=== PATIENT | male | born 1950 | race Caucasian/White ===

== ENCOUNTER 2020-11-20 11:22 | Emergency (ER) | payer MEDICARE, SELFPAY ==
[2020-11-20] VITALS (13 sets, daily range): BP systolic 141–191; BP diastolic 83–111; PULSE 87–123; RESP 16–40; TEMP 36.4–36.7; O2SAT 83–98; BMI 25.0
--- NOTE | 2020-11-20 11:54 | DI.RAD.S_ITS ---
PROCEDURE: XR CHEST 1V INDICATIONS: red, swollen feet, cough, runny nose TECHNIQUE: One view of the chest was acquired. COMPARISON: None. FINDINGS: Surgical changes and devices: None. Lungs and pleura: On this semiupright portable chest examination, no large pneumothorax or large pleural effusions are seen. No focal infiltrates are seen. The lungs are hyperexpanded. Mediastinum: Mediastinal contours appear normal. Heart size is normal. Bones and chest wall: No suspicious bony lesions. Age-appropriate bony degenerative changes are seen. Overlying soft tissues appear unremarkable. IMPRESSION: No focal infiltrates are seen. Hyperexpanded lungs. If there is clinical concern for a developing pulmonary process, a short-term followup chest series (with PA and lateral views, performed in deep inspiration) is suggested for further evaluation. Dictated by: Cononr Ragsdale M.D. on 11/20/2020 at 11:39 Approved by: Connor Ragsdale M.D. on 11/20/2020 at 11:40
--- NOTE | 2020-11-20 11:57 | ED.EXTPRO ---
HPI - Extremity Problem General Chief complaint: Extremity Problem,Nontraumatic Stated complaint: feet swollen/red in morning,eyes watery Time Seen by Provider: 11/20/20 11:31 Source: patient Mode of arrival: Ambulatory Limitations: no limitations History of Present Illness HPI Narrative: This is a pleasant 70-year-old male who comes to the emergency department with complaint of some nasal congestion, some tearing watery eyes, some throat irritation particularly after he drinks water. He also states he has had a mild cough which he describes as nonproductive. He denies any chest pain or pressure. He states occasional shortness of breath but describes it as mild. He denies any orthopnea. He denies any exertional dyspnea. Patient did have some nausea today. He has not had any vomiting. He has occasional abdominal discomfort but none today. Denies any diarrhea. He has not had a bowel movement about 3 days. Patient states he has been passing flatus regularly. He denies any dysuria, he has had polyuria but describes it as normal amounts and has not increased recently. Patient also notes that he used to have a lot of swelling in his lower extremities but does not currently. He also notes he has a redness on his feet it started on the soles and is now on the sides and he has had skin changes associated. He does note that it is intermittently painful. He also notes that he does sometimes have some tingling in his feet has not had any loss of sensation. He has also had some discomfort with the tooth in the right back occasionally. Patient states that he has not seen a physician about 5 years, he used to be a known diabetic on metformin but quit 5 years prior after moving to a new location. He also took Paxil for 20 years but quit. He initially took it after his for grief and depression but states he has been doing better and does not feel like he needs it currently. He denies any prior history of hypertension, dyslipidemia or known cardiac disease. He denies any other surgeries. He states he uses a pipe regularly to smoke tobacco, he quit drinking alcohol 30 years ago but states that he did drink to excess before that. He does not use any recreational drugs or illicit drugs but does have exposure to marijuana 2nd hand. He is currently living in a room in a house which he describes as a drug house that he rents. He states that he feels a little bit unsafe because any activities that occur. He purchased a van which he has been living in in the driveway. He states that he did qualify for living assistance approximately a year ago but he did not pursue it. He has not had a primary care physician for the last five years. Related Data Previous Rx's Medication Instructions Recorded metformin 500 mg PO BID #30 tab 11/20/20 terbinafine HCl 1 applic TOPICAL BID #30 g 11/20/20 Allergies Allergy/AdvReac Type Severity Reaction Status Date / Time No Known Drug Allergies Allergy Verified 11/20/20 13:38 Review of Systems Review of Systems ROS Unobtainable: All systems reviewed & are unremarkable except as noted in HPI and below Patient History Medical History (Updated 11/20/20 @ 15:09 by Marilyn Miguel DO) Diabetes Social History Smoking Status: Current every day smoker Smoking Status: Current every day smoker tobacco type: pipe alcohol intake frequency: 0-2 drinks per day Substance Use Type: does not use Exam Narrative Exam Narrative: GEN: well nourished, well appearing male, alert and oriented x 3, patient appears to be in mild distress. HEENT: Atraumatic, pupils are equal round reactive to light, extraocular movements are intact, nares are clear. HEART: Tachycardic but Regular rate and rhythm without murmur, clicks, rubs. Pulses are equal in upper and lower extremities LUNGS:Lungs clear to auscultation, no wheezes, rales, crackles, chest moves symmetrically, no tachypnea accessory muscle use. ABD:bowel sounds normal, soft, non-tender, nondistended, no guarding, rebound, rigidity, no masses noted, no hepatosplenomegaly :No CVA tenderness MSCL: Non-tender, no muscle atrophy, muscles strength 5/5 upper and lower extremities, full range of motion, normal gait NEURO:CN 2-12 intact, sensation normal SKIN: Patient has erythema of the soles of his feet and extending in sort of a scalloped edged onto the medial and lateral sides and in between the toes. There is some hyperkeratotic changes and skin changes consistent with a fungal type infection. There is no discharge, there is no warmth or signs of a infectious change. There are no vesicles, blisters or below. PSYCH: Patient endorses a history of anxiety and depression but denies current. No suicidal ideation or homicidal ideation. Prior history of alcohol abuse. Patient did become slightly tearful during discussion and states he did not expect us to be this nice to him. Initial Vital Signs Initial Vital Signs: Vital Signs Temperature 98.1 F 11/20/20 11:30 Pulse Rate 123 H 11/20/20 11:30 Respiratory Rate 20 11/20/20 11:30 Blood Pressure 191/111 H 11/20/20 11:30 Pulse Oximetry 98 11/20/20 11:30 Course Orders Ordered: ED Orders 11/20/20 11:40 Complete Blood Count AUTO DIFF Stat Comprehensive Metabolic Panel Stat Lipase Stat 11/20/20 11:54 Consult to [employer] - [employer]er Stat XR chest 1V Stat 11/20/20 12:17 COVID19 Stat 11/20/20 14:47 Urine Microscopic Stat Discontinued Medications Sodium Chloride (Normal Saline 0.9%) 1,000 mls @ 1,000 mls/hr IV BOLUS ONE Stop: 11/20/20 12:53 Last Infusion: 11/20/20 13:39 Dose: 0 mls/hr Documented by: Admin: 11/20/20 12:17 Dose: 1,000 mls/hr Documented by: ZARIA Vital Signs Vital signs: Vital Signs - 8 hr 11/20/20 11:30 11/20/20 11:31 11/20/20 12:00 Temperature 98.1 F Pulse Rate 111 H 109 H 100 H Respiratory Rate 20 29 H 33 H Blood Pressure 191/111 H 181/106 H 168/88 H Pulse Oximetry 97 96 98 11/20/20 12:30 11/20/20 13:00 11/20/20 13:30 Temperature Pulse Rate 98 H 92 H 94 H Respiratory Rate 16 40 H 26 H Blood Pressure 155/95 H 171/89 H 169/96 H Pulse Oximetry 95 98 95 11/20/20 14:00 11/20/20 14:01 11/20/20 14:30 Temperature Pulse Rate 97 H 98 H 87 Respiratory Rate 37 H 34 H 28 H Blood Pressure 173/102 H 156/83 H Pulse Oximetry 11/20/20 14:42 11/20/20 15:00 12/24/20 15:30 Temperature Pulse Rate 102 H 93 H 90 Respiratory Rate 23 Blood Pressure 162/92 H 141/83 H 145/84 H Pulse Oximetry 83 L 96 95 11/20/20 15:37 Temperature 97.6 F Pulse Rate Respiratory Rate Blood Pressure Pulse Oximetry MDM - Extremity (Nontraumatic) Lab Data Result diagrams: 11/20/20 11:40 11/20/20 11:40 Labs: Lab Results 11/20/20 11/20/20 11/20/20 Range/Units 11:40 11:40 12:17 WBC 8.5 (4.5-11.0) X10^3/uL RBC 6.68 H (4.5-5.9) X10^6/uL Hgb 18.4 H (13.5-17.5) g/dL Hct 55.6 H (41-53) % MCV 83.2 (80-100) fL MCH 27.5 (26-34) PG MCHC 33.1 (30-36) % RDW 13.9 (11.6-14.8) % Plt Count 312 (150-400) X10^3/uL Neut % (Auto) 75.1 H (50-75) % Lymph % (Auto) 13.0 L (25-40) % [place] % (Auto) 11.1 (3-14) % Eos % (Auto) 0.1 L (2-4) % Baso % (Auto) 0.7 (0-2) % Neut # (Auto) 6400 (2144-7229) /uL Lymph # (Auto) 1100 (3773-5420) /uL [place] # (Auto) 900 (0-900) /uL Eos # (Auto) 0 (0-450) /uL Baso # (Auto) 100 (0-100) /uL Sodium 135 L (137-145) mmol/L Potassium 3.9 (3.4-5.1) mmol/L Chloride 95 L (98-107) mmol/L Carbon Dioxide 29 (22-32) mmol/L BUN 23 H (9-20) mg/dL Creatinine 1.39 H (0.66-1.25) mg/dL Estimated GFR 50.7 L (>60) mL/min BUN/Creatinine Ratio 16.5 (6-22) Glucose 254 H (80-110) mg/dL Calcium 9.3 (8.4-10.2) mg/dL Total Bilirubin 0.5 (0.2-1.3) mg/dL AST 27 (17-59) IU/L ALT 20 (<50) IU/L Alkaline Phosphatase 127 H (38-126) U/L Total Protein 8.7 H (6.3-8.2) g/dL Albumin 4.6 (3.5-5.0) g/dL Globulin 4.1 (1.7-4.1) g/dL Albumin/Globulin Ratio 1.1 (1.0-2.8) Lipase 44 (23-300) U/L Urine RBC (0-5/HPF) Urine WBC (0-5/HPF) Ur Squamous Epith Cells (0-5/HPF) Urine Bacteria (None) Hyaline Casts (None) Urine Mucus (Negative) Ur Culture Indicated? COVID-19 PCR Negative (Negative) 11/20/20 Range/Units 14:47 WBC (4.5-11.0) X10^3/uL RBC (4.5-5.9) X10^6/uL Hgb (13.5-17.5) g/dL Hct (41-53) % MCV (80-100) fL MCH (26-34) PG MCHC (30-36) % RDW (11.6-14.8) % Plt Count (150-400) X10^3/uL Neut % (Auto) (50-75) % Lymph % (Auto) (25-40) % [place] % (Auto) (3-14) % Eos % (Auto) (2-4) % Baso % (Auto) (0-2) % Neut # (Auto) (5811-4484) /uL Lymph # (Auto) (0694-2464) /uL [place] # (Auto) (0-900) /uL Eos # (Auto) (0-450) /uL Baso # (Auto) (0-100) /uL Sodium (137-145) mmol/L Potassium (3.4-5.1) mmol/L Chloride (98-107) mmol/L Carbon Dioxide (22-32) mmol/L BUN (9-20) mg/dL Creatinine (0.66-1.25) mg/dL Estimated GFR (>60) mL/min BUN/Creatinine Ratio (6-22) Glucose (80-110) mg/dL Calcium (8.4-10.2) mg/dL Total Bilirubin (0.2-1.3) mg/dL AST (17-59) IU/L ALT (<50) IU/L Alkaline Phosphatase (38-126) U/L Total Protein (6.3-8.2) g/dL Albumin (3.5-5.0) g/dL Globulin (1.7-4.1) g/dL Albumin/Globulin Ratio (1.0-2.8) Lipase (23-300) U/L Urine RBC 0-1/hpf (0-5/HPF) Urine WBC 0-1/hpf (0-5/HPF) Ur Squamous Epith Cells 0-1 /hpf (0-5/HPF) Urine Bacteria None seen (None) Hyaline Casts 10-30/lpf (None) Urine Mucus 1+ H (Negative) Ur Culture Indicated? Cult not indicated COVID-19 PCR (Negative) Urine Dip Bedside Urine Glucose 250 mg/dl Bedside Urine Bilirubin - Negative Bedside Urine Ketone ++ 40 Urine Specific [place] 1.030 Bedside Urine Occult Blood - Negative Bedside Urine pH 5.5 Bedside Urine Protein + 30 Bedside Urine Urobilinogen - Negative Bedside Urine Nitrite - Negative Bedside Urine Leukocytes - Negative Esterase Imaging Data Chest x-ray: Radiologist's Impression: [address] [id number] ReportSigned Patient: Warren Sanderson [facility]#: [id number]: 1Acct:[id number]/Sex: 70 / MDate of Service: 11/20/20Loc: EDAccession Number: [id number] Procedure: XR chest 1V Ordering Provider: Marilyn Miguel D.O. PROCEDURE: XR CHEST 1V INDICATIONS: red, swollen feet, cough, runny nose TECHNIQUE: One view of the chest was acquired. COMPARISON: None. FINDINGS: Surgical changes and devices: None. Lungs and pleura: On this semiupright portable chest examination, no large pneumothorax or large pleural effusions are seen. No focal infiltrates are seen. The lungs are hyperexpanded. Mediastinum: Mediastinal contours appear normal. Heart size is normal. Bones and chest wall: No suspicious bony lesions. Age-appropriate bony degenerative changes are seen. Overlying soft tissues appear unremarkable. IMPRESSION: No focal infiltrates are seen. Hyperexpanded lungs. If there is clinical concern for a developing pulmonary process, a short-term followup chest series (with PA and lateral views, performed in deep inspiration) is suggested for further evaluation. Dictated by: Connor Ragsdale M.D. on 11/20/2020 at 11:39 Approved by: Connor Ragsdale M.D. on 11/20/2020 at 11:40 ECG Data Attestation EKG: I personally reviewed and interpreted this ECG as follows: Prior ECG tracings: not available for review Interpretation: Sinus tachycardia with rate of 101, OH 146 QRS of 94 and QTC of 469. No ST elevation is appreciated no depression appreciated. Patient has RSR. No priors available for comparison MDM Narrative Medical decision making narrative: This is a 70-year-old male who comes with multiple complaints. Plan for COVID testing as he does have some symptoms. Patient also has a history of diabetes he is tachycardic in the department and has skin changes on his feet consistent with fungal infection. Patient has hyperglycemia consistent with his history of diabetes. He likely has a little bit of neuropathy in his lower extremities and appears to have a fungal infection. Was given topical ointment for his fungal infection. Restarted on his oral medication, he was also seen by social work in attempt to help him set up follow-up with primary care as well as services. Patient was instructed to follow-up so that he can have his renal function rechecked. He does not show any signs of DKA today. His tachycardia improved during the department as well as his hypertension. Discharge Plan Departure Patient Disposition: Home Clinical Impression: Hyperglycemia, Tinea pedis Instructions: How to Take Care of Your Feet If You Have Diabetes, DI for Diabetes Type 2 Activity Restrictions/Additional Instructions: Follow up with a primary care physician to restart and continue your diabetic medication. I suspect the changes on your skin are a fungal infection, your diabetes makes this more likely to occur especially when it is uncontrolled. Apply medication twice daily until symptoms have completely resolved this will likely take several weeks for longer. Take metformin as prescribed, this medication can affect your renal functions you need to have your labs rechecked in the next 1-2 weeks as this medication can sometimes affect your renal or kidney function. Return to the emergency department for fevers, new chest pain, shortness of breath, lightheadedness or passing out, persistent vomiting, abdominal pain, black or bloody stools or new swelling, increasing redness, or other new skin changes in your extremities. Prescriptions: New terbinafine HCl 1 % cream 1 applic topical BID Qty: 30 RF: 0 metformin 500 mg tablet 500 mg PO BID Qty: 30 RF: 0 Referrals: Jose Lees MD [Physician] -
[2020-11-20 12:02] LABS: Add Manual Diff / Slide Review NO; Basophils Absolute Auto 100 /uL (0-100); Basophils Percent Auto 0.7 % (0-2); Eosinophils Absolute Auto 0 /uL (0-450); Eosinophils Percent Auto 0.1 % (2-4); Hematocrit 55.6 % (41-53); Hemoglobin 18.4 g/dL (13.5-17.5); Lymphocytes Absolute Auto 1100 /uL (1100-4500); Mean Corpuscular HGB Conc 33.1 % (30-36); Mean Corpuscular Hemoglobin 27.5 PG (26-34); Mean Corpuscular Volume 83.2 fL (80-100); Monocytes Absolute Auto 900 /uL (0-900); Monocytes Percent Auto 11.1 % (3-14); Neutrophils Absolute Auto 6400 /uL (1500-7000); Neutrophils Percent Auto 75.1 % (50-75); Platelet Count 312 X10^3/uL (150-400); Red Blood Cell Count 6.68 X10^6/uL (4.5-5.9); Red Cell Distribution Width 13.9 % (11.6-14.8); White Blood Cell Count 8.5 X10^3/uL (4.5-11.0)
[2020-11-20 12:08] LABS: Alanine Aminotransferase 20 IU/L (<50); Albumin 4.6 g/dL (3.5-5.0); Albumin Globulin Ratio 1.1 (1.0-2.8); Alkaline Phosphatase 127 U/L (38-126); Aspartate Aminotransferase 27 IU/L (17-59); BUN Creatinine Ratio 16.5 (6-22); Bilirubin Total 0.5 mg/dL (0.2-1.3); Blood Urea Nitrogen 23 mg/dL (9-20); Calcium 9.3 mg/dL (8.4-10.2); Carbon Dioxide 29 mmol/L (22-32); Chloride 95 mmol/L (98-107); Estimated Glomerular Filt Rate 50.7 mL/min (>60); Globulin 4.1 g/dL (1.7-4.1); Glucose 254 mg/dL (80-110); Potassium 3.9 mmol/L (3.4-5.1); Sodium 135 mmol/L (137-145); Total Protein 8.7 g/dL (6.3-8.2)
[2020-11-20] MEDS: SODIUM CHLORIDE 0.9% 1,000 ML 1000 ML IV (12:17)
[2020-11-20 12:43] LABS: COVID19 -Nasal RAPID Negative (Negative)
[2020-11-20 13:56] LABS: HEMOLYSIS < 15 (0-50); Lipase 44 U/L (23-300)
--- NOTE | 2020-11-20 14:21 | CM.SWNOTE ---
GREASE MONKEY note GREASE MONKEY consult requested for patient. Patient is a 70 yo male who presents to this ED with cough and swollen feet. Patient's insurance is Medicare. Per verbal report from Dr. Miguel, patient is currently living in his van in the driveway of house he rents a room in, and has not engaged with a PCP in multiple years. GREASE MONKEY enters room and introduces self and role. GREASE MONKEY and patient discuss at length patient's current housing situation, trauma history, and engagement with healthcare. Patient reports losing his 20 years prior and raising his children as a single father. Patient reports he was sent to halfway for 3 years and has been experiencing housing instability and homelessness since. Patient reports experiencing homelessness for 2 years prior to moving into current house. Patient reports that once he moved in, he noticed that it was a drug house and that the people in the house are using often in the home. Patient reports he then bought a van, parked it in the driveway and has been living in the van for the past few months. Patient denies SI/HI and denies substance/ETOH use. Patient reports he has been reluctant to re-engage with a PCP as he wishes the healthcare system had better explained options for treatment for his . Patient states he recognizes that due to his age and underlying health concerns, it is important for him to start meeting with a PCP again. Patient and GREASE MONKEY discuss housing. Patient had applied for housing assistance in the past, but did engage with services. GREASE MONKEY and patient discuss process for obtaining housing assistance through [employer], and patient expresses plan to start this process early following year. Patient and GREASE MONKEY discuss boundaries with roommate/landlord. Patient reports that he has been lending his roommate his SSI card and finding his account completely drained upon it's return. GREASE MONKEY and patient roleplay saying no to landlord when landlord asks for money, and patient states he is confident in setting boundary. Patient reports that he does not have a phone and currently has no money, but plans to get a phone after his next check is deposited. Patient states he feels comfortable that he knows how to accomplish this. Patient explains that he is concerned about cost of this hospital stay due to insurance. GREASE MONKEY gives patient contact info for [facility] to inquire about dual Medicare/Medicaid enrollment. GREASE MONKEY prints off tana care application and encourages patient to fill this out. Patient states that he will do this following day. GREASE MONKEY provides ED GREASE MONKEY phone in case patient needs additional support in accessing housing and healthcare resources. GREASE MONKEY updates Dr. Miguel on the above. Plan: Patient to continue course of care in ED and follow up with AKANKSHA, SHARRI once he obtains a phone. LAURA Romo
[2020-11-20 15:12] LABS: Bacteria Urine None Seen
[2020-11-20 15:25] LABS: RBC Urine 0-1/HPF (0-5/HPF); Squamous Epithelial Cell Urine 0-1 /HPF (0-5/HPF); WBC Urine 0-1/HPF (0-5/HPF)
[2020-11-20 15:26] LABS: Culture Indicated Urine Cult Not Indicated; Hyaline Casts Urine 10-30/LPF; Mucus Urine 1+ (Negative)
== END 2020-11-20 16:07 | disposition home or self-care (01) ==
PROVIDERS: Emergency Provider Emergency Medicine
DX: E11.65 Type 2 diabetes mellitus with hyperglycemia (principal); B35.3 Tinea pedis; R06.02 Shortness of breath; R20.2 Paresthesia of skin; R00.0 Tachycardia, unspecified; Z20.828 Contact with and (suspected) exposure to other viral communicable diseases
CPT/HCPCS: 36415; 71045; 80053; 81003; 81015; 83690; 85025; 87635; 93005; 96360; 99283; 99284

== ENCOUNTER 2025-02-11 20:45 | Emergency (ER) | payer MEDICARE, OTHER, SELFPAY ==
[2025-02-11] VITALS (9 sets, daily range): BP systolic 125–152; BP diastolic 74–93; PULSE 71–82; RESP 13–20; TEMP 36.1; O2SAT 94–98; BMI 24.3
--- NOTE | 2025-02-11 22:31 | DI.RAD.S_ITS ---
PROCEDURE: XR CHEST 1V INDICATIONS: chest pain TECHNIQUE: One view of the chest was acquired. COMPARISON: [facility], , XR CHEST 1V, 11/20/2020, 12:01. FINDINGS: Surgical changes and devices: None. Lungs and pleura: Lungs are clear. No pleural effusions or pneumothorax. Mediastinum: Mediastinal contours appear normal. Heart size is normal. Bones and chest wall: No suspicious bony lesions. Overlying soft tissues appear unremarkable. IMPRESSION: No acute cardiopulmonary abnormality is seen. Approved by: Daisha Toscano M.D.,Ph.D. on 02/11/2025 at 23:17
[2025-02-11 22:37] LABS: Add Manual Diff / Slide Review NO; Basophils Absolute Auto 100 /uL (0-100); Basophils Percent Auto 1.1 % (0-2); Eosinophils Absolute Auto 400 /uL (0-450); Eosinophils Percent Auto 5.5 % (2-4); Hematocrit 53.9 % (41-53); Hemoglobin 17.9 g/dL (13.5-17.5); Lymphocytes Absolute Auto 1900 /uL (1100-4500); Lymphocytes Percent Auto 28.6 % (25-40); Mean Corpuscular HGB Conc 33.2 % (30-36); Mean Corpuscular Hemoglobin 27.3 PG (26-34); Mean Corpuscular Volume 82.4 fL (80-100); Monocytes Absolute Auto 700 /uL (0-900); Monocytes Percent Auto 10.5 % (3-14); Neutrophils Absolute Auto 3600 /uL (1500-7000); Neutrophils Percent Auto 54.3 % (50-75); Platelet Count 276 X10^3/uL (150-400); Red Blood Cell Count 6.53 X10^6/uL (4.5-5.9); Red Cell Distribution Width 13.7 % (11.6-14.8); White Blood Cell Count 6.6 X10^3/uL (4.5-11.0)
[2025-02-11] MEDS: ASPIRIN 81 MG CHEW TAB 324 MG PO (22:41)
[2025-02-11 22:44] LABS: Alanine Aminotransferase 21 IU/L (<50); Albumin 4.3 g/dL (3.5-5.0); Albumin Globulin Ratio 1.3 (1.0-2.8); Alkaline Phosphatase 103 U/L (38-126); Aspartate Aminotransferase 29 IU/L (17-59); BUN Creatinine Ratio 11.5 (6-22); Bilirubin Total 0.4 mg/dL (0.2-1.3); Blood Urea Nitrogen 11 mg/dL (9-20); Calcium 9.3 mg/dL (8.4-10.2); Carbon Dioxide 29 mmol/L (22-32); Chloride 96 mmol/L (98-107); Creatine Kinase 36 U/L (55-170); Estimated Glomerular Filt Rate > 60 mL/min (>60); Globulin 3.3 g/dL (1.7-4.1); Glucose 308 mg/dL (80-110); HEMOLYSIS 25 (0-50); Lipase 81 U/L (23-300); Magnesium 2.1 mg/dL (1.6-2.3); Potassium 4.5 mmol/L (3.4-5.1); Sodium 131 mmol/L (137-145); Total Protein 7.6 g/dL (6.3-8.2)
[2025-02-11 22:45] LABS: INR 0.8 (0.9-1.3); Prothrombin Time 9.5 SECONDS (9.4-12.5)
[2025-02-11 22:48] LABS: PTT Partial Thromboplastin Tim 34 SECONDS (25.1-36.5)
[2025-02-11 22:55] LABS: NT-proBNP (BNP-Adult 18+) 60 pg/mL (<125); Troponin I < 0.012 ng/mL (0.01-0.034)
--- NOTE | 2025-02-11 23:16 | ED.GENADULT ---
HPI - General Adult General Chief complaint: Diabetic Problem Stated complaint: hurts all over, type 2 diabetic Time Seen by Provider: 02/11/25 21:40 Source: patient Mode of arrival: Ambulatory History of Present Illness HPI narrative: Patient is a 74-year-old male history of diabetes but noncompliant presenting to day with in his feet. He apparently has been reclusive in his house for number of years he does not really get out very much. He is got pain in both feet sometimes he was having some chest pain but seems to be very positional this is been ongoing for a number of weeks it has not any new or worse today. Related Data Previous Rx's Medication Instructions Recorded metformin 500 mg tablet 500 mg PO BID #30 tabs 11/20/20 terbinafine HCl 1 % topical cream 1 applic topical BID #30 grams 11/20/20 gabapentin 300 mg capsule 300 mg PO BID #30 caps 02/11/25 metformin 500 mg tablet,extended 500 mg PO BID #60 tabs 02/11/25 release 24 hr Allergies Allergy/AdvReac Type Severity Reaction Status Date / Time No Known Drug Allergies Allergy Verified 11/20/20 13:38 Patient History Medical History Diabetes Social History Smoking Status: Current every day smoker Smoking Status: Current every day smoker tobacco type: pipe alcohol intake frequency: 0-2 drinks per day Exam Initial Vital Signs Initial Vital Signs: Vital Signs Temperature 97.0 F L 02/11/25 20:53 Pulse Rate 82 02/11/25 20:53 Respiratory Rate 16 02/11/25 20:53 Blood Pressure 145/82 H 02/11/25 20:53 Pulse Oximetry 98 02/11/25 20:53 Oxygen Delivery Method Room Air 02/11/25 20:53 GENERAL: Elderly 74-year-old male and in no acute distress. HEENT: Head atraumatic,EOMI, pupils reactive, face symmetric, moist mucous membranes CARDIOVASCULAR: Regular rate and rhythm without murmurs, rubs or gallops. RESPIRATORY: Breath sounds equal bilaterally, no wheezes rales or rhonchi. ABDOMEN: Soft, nontender. Normoactive bowel sounds all 4 quadrants. No guarding or rebound. EXTREMITIES: Normal range of motion, no clubbing or edema. Neurovascularly intact Peripheral pulses intact no gross bony deformity he does have dry skin bilaterally NEUROLOGICAL: Alert and oriented x4.Normal gait and speech. Cranial nerves II through XII grossly intact. Sensation in lower extremities intact SKIN: Warm, dry, no laceration, no petechiae, no rashes or lesions. Course Orders Ordered: ED Orders 02/11/25 21:16 A1C [Hemoglobin A1C% w Est Avg Glu] Stat Complete Blood Count AUTO DIFF Stat Comprehensive Metabolic Panel Stat Lipase Stat Magnesium Stat NT-proBNP (BNP-Adult 18+) Stat PTT Partial Thromboplastin Edy Stat Prothrombin Time INR Stat Troponin & CK Cardiac Panel Stat 02/11/25 22:31 XR chest 1V Stat EKG-12 Lead Stat Discontinued Medications Acetaminophen (Acetaminophen 325 Mg Tablet) 650 mg PO NOW ONE Stop: 02/11/25 23:30 Last Admin: 02/11/25 23:47 Dose: 650 mg Documented By: GUSTAVO Aspirin (Aspirin 81 Mg Chew Tab) 324 mg PO NOW ONE Stop: 02/11/25 22:32 Last Admin: 02/11/25 22:41 Dose: 324 mg Documented By: GUSTAVO Gabapentin (Gabapentin 300 Mg Capsule) 300 mg PO NOW ONE Stop: 02/11/25 23:30 Last Admin: 02/11/25 23:46 Dose: 300 mg Documented By: GUSTAVO Metformin HCl (Metformin Xr 500 Mg Tablet) 500 mg PO NOW ONE Stop: 02/11/25 23:30 Last Admin: 02/11/25 23:46 Dose: 500 mg Documented By: GUSTAVO Vital Signs Vital signs: Vital Signs - 8 hr 02/11/25 20:53 02/11/25 21:28 02/11/25 21:28 Temperature 97.0 F L Pulse Rate 82 79 Respiratory Rate 16 Blood Pressure 145/82 H 149/87 H Pulse Oximetry 98 97 Oxygen Delivery Method Room Air 02/11/25 21:30 02/11/25 21:31 02/11/25 21:31 Temperature Pulse Rate 82 80 Respiratory Rate 16 13 Blood Pressure 152/93 H Pulse Oximetry 97 98 Oxygen Delivery Method Room Air 02/11/25 22:00 02/11/25 22:30 02/11/25 22:44 Temperature Pulse Rate 72 71 Respiratory Rate Blood Pressure 140/82 Pulse Oximetry 95 94 Oxygen Delivery Method 02/11/25 22:44 02/11/25 23:00 02/11/25 23:00 Temperature Pulse Rate 78 79 Respiratory Rate Blood Pressure 151/88 H Pulse Oximetry 97 96 Oxygen Delivery Method 02/11/25 23:30 02/11/25 23:30 02/12/25 00:04 Temperature Pulse Rate 72 79 Respiratory Rate 20 20 Blood Pressure 125/74 125/74 Pulse Oximetry 95 97 Oxygen Delivery Method Room Air Room Air Medical Decision Making Lab Data 02/11/25 21:16 02/11/25 21:16 Labs: Lab Results 02/11/25 Range/Units 21:16 WBC 6.6 (4.5-11.0) X10^3/uL RBC 6.53 H (4.5-5.9) X10^6/uL Hgb 17.9 H (13.5-17.5) g/dL Hct 53.9 H (41-53) % MCV 82.4 (80-100) fL MCH 27.3 (26-34) PG MCHC 33.2 (30-36) % RDW 13.7 (11.6-14.8) % Plt Count 276 (150-400) X10^3/uL Neut % (Auto) 54.3 (50-75) % Lymph % (Auto) 28.6 (25-40) % Cassia % (Auto) 10.5 (3-14) % Eos % (Auto) 5.5 H (2-4) % Baso % (Auto) 1.1 (0-2) % Neut # (Auto) 3600 (9309-6124) /uL Lymph # (Auto) 1900 (3950-0608) /uL Cassia # (Auto) 700 (0-900) /uL Eos # (Auto) 400 (0-450) /uL Baso # (Auto) 100 (0-100) /uL PT 9.5 (9.4-12.5) SECONDS INR 0.8 L (0.9-1.3) APTT 34 (25.1-36.5) SECONDS Sodium 131 L (137-145) mmol/L Potassium 4.5 (3.4-5.1) mmol/L Chloride 96 L (98-107) mmol/L Carbon Dioxide 29 (22-32) mmol/L BUN 11 (9-20) mg/dL Creatinine 0.96 (0.66-1.25) mg/dL Estimated GFR > 60 (>60) mL/min BUN/Creatinine Ratio 11.5 (6-22) Glucose 308 H (80-110) mg/dL Hemoglobin A1c 10.8 H (4.0-6.0) % Calcium 9.3 (8.4-10.2) mg/dL Magnesium 2.1 (1.6-2.3) mg/dL Total Bilirubin 0.4 (0.2-1.3) mg/dL AST 29 (17-59) IU/L ALT 21 (<50) IU/L Alkaline Phosphatase 103 (38-126) U/L Total Creatine Kinase 36 L (55-170) U/L Troponin I < 0.012 (0.01-0.034) ng/mL NT-Pro-B Natriuret Pep 60 (<125) pg/mL Total Protein 7.6 (6.3-8.2) g/dL Albumin 4.3 (3.5-5.0) g/dL Globulin 3.3 (1.7-4.1) g/dL Albumin/Globulin Ratio 1.3 (1.0-2.8) Lipase 81 (23-300) U/L Point of Care Testing Glucose POC 301 Urine Dip Bedside Urine Glucose 1000 mg/dl Bedside Urine Bilirubin - Negative Bedside Urine Ketone - Negative Urine Specific Sperry 1.010 Bedside Urine Occult Blood - Negative Bedside Urine pH 6.0 Bedside Urine Protein - Negative Bedside Urine Urobilinogen - Negative Bedside Urine Nitrite - Negative Bedside Urine Leukocytes - Negative Esterase Point of care testing: Point of Care Testing Glucose POC 301 Urine Dip Bedside Urine Glucose 1000 mg/dl Bedside Urine Bilirubin - Negative Bedside Urine Ketone - Negative Urine Specific S[place] 1.010 Bedside Urine Occult Blood - Negative Bedside Urine pH 6.0 Bedside Urine Protein - Negative Bedside Urine Urobilinogen - Negative Bedside Urine Nitrite - Negative Bedside Urine Leukocytes - Negative Esterase Imaging Data Chest x-ray: Radiologist's Impression: PROCEDURE: XR CHEST 1V INDICATIONS: chest pain TECHNIQUE: One view of the chest was acquired. COMPARISON: [facility], , XR CHEST 1V, 11/20/2020, 12:01. FINDINGS: Surgical changes and devices: None. Lungs and pleura: Lungs are clear. No pleural effusions or pneumothorax. Mediastinum: Mediastinal contours appear normal. Heart size is normal. Bones and chest wall: No suspicious bony lesions. Overlying soft tissues appear unremarkable. IMPRESSION: No acute cardiopulmonary abnormality is seen. Approved by: Daisha Toscano M.D.,Ph.D. on 02/11/2025 at 23:17 ECG Data Attestation: I personally reviewed and interpreted this ECG as follows: Prior ECG tracings: available for review Interpretation: Normal sinus rhythm rate 71 MA interval 1 4 QRS 82 QTC 425 T-wave inversion noted in AVR and V1 no ST elevation or depression previous EKGs 2020 similar MDM Narrative Medical decision making narrative: Patient is 74-year-old male who has a history of diabetes but noncompliant with any medication he has not seen a physician in a number of years. Presenting today with some numbness tingling in his legs it does sound consistent with neuropathy. He is having some sort of chest pain which also seems reproducible this is also been ongoing for number of weeks WBC no leukocytosis hemoglobin concentrated at 17.9 hematocrit 53.9 previously 18.455.6 in the your 2019 Electrolytes within normal limits no JENNYFER glucose 308 No anion gap No evidence of DKA Troponin negative EKGs reviewed as above no ischemia Chest x-ray reviewed no acute process At this time patient is having ongoing complaints he was noncompliant glucose elevated symptoms are most consistent with a diabetic neuropathy. He was given Tylenol gabapentin and metformin here in the ED. Encouraged him to follow up primary care provider. He has a friend here who will help him arrange this Discharge Plan Departure Patient Disposition: Home Clinical Impression: Diabetes, Diabetic neuropathy Instructions: Diabetic Neuropathy, DI for Diabetes Type 2 Activity Restrictions/Additional Instructions: *You have been diagnosed with diabetic diabetic neuropathy *What to do: At this time you have uncontrolled diabetes which is likely causing your leg pain. You must see a provider and get your diabetes under control *Continue to take medications as directed Metformin 500 mg twice a day Gabapentin 300 mg twice daily Tylenol as needed for pain *Follow up with your primary care provider in 2-3 days or call [phone] *Return to ER if you should have increasing pain chest pain shortness of or any new, worsening or concerning symptoms Prescriptions: New metformin 500 mg tablet extended release 24 hr 500 mg PO BID Qty: 60 0RF gabapentin 300 mg capsule 300 mg PO BID Qty: 30 0RF No Action terbinafine HCl 1 % cream 1 applic topical BID Qty: 30 0RF Rx Instructions: apply twice daily to affected area until gone for 1 week. metformin 500 mg tablet 500 mg PO BID Qty: 30 0RF Stand Alone Forms: Patient Portal/API/Survey
--- NOTE | 2025-02-11 23:39 | EKG_ITS ---
[address] [id number] [address] [address] Test Date: 2025-02-11 Pat Name: Warren Sanderson Department: [facility] Room: Gender: Male [employer]: : 1950 Requested By: Order Number: [id number] Reading MD: Hebert Albrecht MD Measurements Intervals [place] Rate: 71 P: -1 PA: 154 QRS: -12 QRSD: 82 T: 33 QT: 392 QTc: 425 Interpretive Statements Normal sinus rhythm Cannot rule out Inferior infarct , age undetermined Electronically Signed On 02-12-2025 6:47:24 PDT by Hebert Albrecht MD
[2025-02-11] MEDS: METFORMIN XR 500 MG TABLET PO (23:46)
[2025-02-11] MEDS: GABAPENTIN 300 MG CAPSULE PO (23:46)
[2025-02-11] MEDS: ACETAMINOPHEN 325 MG TABLET 650 MG PO (23:47)
[2025-02-11 23:54] LABS: Hemoglobin A1C% w Est Avg Glu 10.8 % (4.0-6.0)
[2025-02-12 00:04] VITALS: BP 125/74; PULSE 79; RESP 20; O2SAT 97
== END 2025-02-12 00:06 | disposition home or self-care (01) ==
PROVIDERS: Emergency Provider Emergency Medicine
DX: E11.40 Type 2 diabetes mellitus with diabetic neuropathy, unspecified (principal); Z79.84 Long term (current) use of oral hypoglycemic drugs; R07.9 Chest pain, unspecified
CPT/HCPCS: 36415; 71045; 80053; 81003; 82550; 82962; 83036; 83690; 83735; 83880; 84484; 85025; 85610; 85730; 93005; 93010; 99284